=== PATIENT | female | born 1955 | race Caucasian/White ===

== ENCOUNTER 2024-03-08 17:45 | Emergency (ER) | payer MEDICARE, MEDICAID, SELFPAY ==
[2024-03-08] VITALS (18 sets, daily range): BP systolic 123–159; BP diastolic 71–89; PULSE 59–79; TEMP 36.7; O2SAT 21–99; BMI 22.1
--- NOTE | 2024-03-08 17:57 | XR_ITS ---
The [address] [address] Patient Name: OLGA SHEPPARD MRN: [id number] date: 1955 Sex: F Assigned Patient Location: ER Current Patient Location: ED.MAIN Accession/Order Number: [id number] Exam Date: 03/08/2024 18:10 Report Date: 03/08/2024 18:49 At the request of: JEREMÍAS CARRILLO Procedure: XR chest 1V EXAM: XR chest 1V HISTORY: pain COMPARISON: None. TECHNIQUE: AP portable upright chest x-ray. FINDINGS: No consolidation or edema. Prominent markings right lung base medially. Small scar lower left heart margin. Possible small granuloma left lung. Heart size normal for technique. No pleural effusion or pneumothorax. No pneumoperitoneum or bowel distention upper abdomen. XR/XR chest 1V IMPRESSION: No consolidation or edema or other acute process. Prominent markings right lung base medially probably vascular. Electronically authenticated by: CORDELL MACE Date: 03/08/2024 18:49
--- NOTE | 2024-03-08 17:57 | ECG_ITS ---
The [facility] Test Date: 2024-03-08 Pat Name: OLGA SHEPPARD Department: Room: - Gender: Female [employer] Manager: : 1955 Requested By: AIDA MAC Order Number: [id number] Reading MD: AIDA MAC Measurements Intervals [place] Rate: 73 P: 14 IN: 146 QRS: 74 QRSD: 80 T: 55 QT: 398 QTc: 424 Interpretive Statements 1100 Sinus rhythm 1470 with occasional supraventricular premature complexes 8102 Low QRS voltage in chest leads 9140 abnormal rhythm ECG No previous ECG available for comparison Electronically Signed On 03-09-2024 6:25:59 EDT by AIDA MAC
--- NOTE | 2024-03-08 18:08 | ED_ITS ---
HPI HPI - General Adult General Chief complaint: Chest Pain Stated complaint: General Weakness Time Seen by Provider: 03/08/24 17:56 Source: patient Mode of arrival: walk-in Limitations: no limitations History of Present Illness HPI narrative: The patient presenting to us with epigastric pain that started within the last hour, she mentioned that the pain was associated with nausea feeling as well as a headache in the posterior aspect of her head, she mentioned [place] she has been hydrating very well but it was hot weather. The patient denies any complaint earlier to this she is denying any cough fever chills or any other complaints and she also denying any alcohol intake Related Data Allergies Allergy/AdvReac Type Severity Reaction Status Date / Time No Known Drug Allergies Allergy Verified 03/08/24 17:52 Opioid HPI Opioid Management Most Recent Opioid Data: Last ED Pain Assessment 03/08/24 17:59 Review of Systems 2 ROS Status of ROS 10 or more systems reviewed and unremark able except as noted in history and below Exam Narrative Exam Narrative: Nurses notes and vital signs reviewed and patient is not hypoxic. General: Well-appearing and in no apparent distress. Skin: Warm, dry, no pallor noted. No rash. Head: Normocephalic, atraumatic. Neck: Supple, non-tender. Eye: Pupils are equal, round and EOMI. No scleral icterus. Ears, Nose, Mouth, and Throat: TM are clear, no nasal mucosal hypertrophy. Oral mucosa is moist, no posterior oropharynx erythema, uvula is mid-line Cardiovascular: Regular Rate and Rhythm without murmur, gallop or rub. Respiratory: No accessory muscle use or respiratory distress. Lungs are clear to auscultation, no wheezing, rales or rhonchi Chest Wall: no tenderness Back: No midline thoracic or lumbar vertebral tenderness. No CVA tenderness Musculoskeletal: normal ROM, no calf or popliteal tenderness, no lower extremity edema/swelling GI: Abdomen is soft, non-distended. Normal bowel sounds. No masses appreciated. Mild epigastric discomfort noted Neurological: A&O x4. No cranial nerve dysfunction observed. No truncal ataxia. Moves all extremities. Sensation intact. Psychiatric: Cooperative and interactive. Normal mood and affect. Constitutional Vital Signs, click to edit/add: Last Vital Signs Temp 98.0 F 05/19/24 17:47 Pulse 71 03/08/24 18:30 Resp 22 H 03/08/24 18:30 BP 134/76 03/08/24 18:15 Pulse Ox 99 03/08/24 18:30 O2 Del Method Room Air 03/08/24 17:47 Course Vital Signs Vital signs: Vital Signs Blood Pressure 152/89 H 03/08/24 17:46 Temperature 98.0 F 03/08/24 17:47 Pulse Rate 71 03/08/24 18:30 Respiratory Rate 22 H 03/08/24 18:30 Blood Pressure 134/76 03/08/24 18:15 Pulse Oximetry 99 03/08/24 18:30 Oxygen Delivery Method Room Air 03/08/24 17:47 Medical Decision Making MDM Narrative Medical decision making narrative: The patient EKG showing sinus rhythm with a heart rate of [address] elevation or depression The patient presentation is mostly secondary to heat exhaustion She was provided with 1 L fluid and Toradol Pepcid as well as Zofran The patient blood workup shows some hyponatremia which could be secondary to hydration Due to the patient risk factor she will have another troponin repeated after 2 hours patient care will be transferred to the next caregiver Dr Garcia Lab Data Labs: Lab Results 03/08/24 03/08/24 Range/Units 18:00 18:08 WBC 4.4 (4.0-11.0) 10^3/uL RBC 3.94 L (4.20-5.40) 10^6/uL Hgb 13.0 (12.0-16.0) g/dL Hct 38.2 (36.0-48.0) % MCV 97.0 (81.0-99.0) fL MCH 33.0 (26.7-34.0) pg MCHC 34.0 (29.9-35.2) g/dL RDW 12.1 (11.0-15.0) % Plt Count 167 (150-450) 10^3/uL MPV 8.8 L (9.5-13.5) fL Neut % (Auto) 68.1 (43.0-75.0) % Lymph % (Auto) 20.8 (20.5-60.0) % Page % (Auto) 10.2 (1.7-12.0) % Eos % (Auto) 0.2 L (0.9-7.0) % Baso % (Auto) 0.5 (0.2-2.0) % Neut # (Auto) 3.0 (1.4-6.5) 10^3/uL Lymph # (Auto) 0.9 L (1.2-3.8) 10^3/uL Page # (Auto) 0.5 (0.3-0.8) 10^3/uL Eos # (Auto) 0.0 (0.0-0.7) 10^3/uL Baso # (Auto) 0.0 (0.0-0.1) 10^3/uL Abs Immat Gran (auto) 0.01 (0.00-0.03) 10^3/uL Imm/Tot Granulo (auto) 0.2 (0.0-0.5) % PT 11.4 (9.0-11.6) sec INR 1.08 Sodium 135 L (136-145) mmol/L Potassium 3.5 (3.5-5.1) mmol/L Chloride 99 (98-107) mmol/L Carbon Dioxide 29.1 (21.0-32.0) mmol/L Anion Gap 10.4 BUN 16.0 (7.0-18.0) mg/dL Creatinine 0.69 (0.55-1.02) mg/dL Est GFR ( Amer) >60 (>=60) Est GFR (Non-Af Amer) >60 (>=60) BUN/Creatinine Ratio 23.2 Glucose 119 H (74-106) mg/dL Calcium 9.3 (8.5-10.1) mg/dL Total Bilirubin 0.7 (0.2-1.0) mg/dL AST 22 (15-37) U/L ALT 23 (14-59) U/L Alkaline Phosphatase 48 (46-116) U/L Troponin I High Sens 18.6 (4.0-51.3) pg/mL Total Protein 6.8 (6.4-8.2) g/dL Albumin 3.8 (3.4-5.0) g/dL Globulin 3.0 g/dL Albumin/Globulin Ratio 1.3 Ethanol Quant <3 mg/dL POC Glucose 119 H (74-106) mg/dL Discharge Plan Discharge Patient Disposition: Still a Patient
[2024-03-08 18:11] LABS: Glucometer 119 mg/dL (74-106)
[2024-03-08 18:15] LABS: Basophils Percent Auto 0.5 % (0.2-2.0); Eosinophils Percent Auto 0.2 % (0.9-7.0); Hematocrit 38.2 % (36.0-48.0); Immature Granulocytes Abs Auto 0.01 10^3/uL (0.00-0.03); Immature Granulocytes Pct Auto 0.2 % (0.0-0.5); Lymphocytes Absolute Auto 0.9 10^3/uL (1.2-3.8); Lymphocytes Percent Auto 20.8 % (20.5-60.0); Mean Platelet Volume 8.8 fL (9.5-13.5); Monocytes Absolute Auto 0.5 10^3/uL (0.3-0.8); Monocytes Percent Auto 10.2 % (1.7-12.0); Neutrophils Percent Auto 68.1 % (43.0-75.0); Platelet Count 167 10^3/uL (150-450); Red Blood Count 3.94 10^6/uL (4.20-5.40); Red Cell Distribution Width 12.1 % (11.0-15.0); White Blood Count 4.4 10^3/uL (4.0-11.0)
[2024-03-08] MEDS: KETOROLAC TROMETHAMINE 30 MG/ML VIAL 15 MG IVP (18:19)
[2024-03-08] MEDS: ONDANSETRON PF 4 MG/2 ML VIAL IV (18:19)
[2024-03-08] MEDS: 0.9 % SODIUM CHLORIDE 1,000 ML 1000 ML IV (18:19)
[2024-03-08] MEDS: FAMOTIDINE/PF 20 MG/2 ML VIAL IV (18:19)
[2024-03-08 18:24] LABS: Ethanol <3 mg/dL
[2024-03-08 18:29] LABS: INR 1.08; Prothrombin Time 11.4 sec (9.0-11.6)
[2024-03-08 18:32] LABS: Alanine Aminotransferase 23 U/L (14-59); Albumin Globulin Ratio 1.3; Albumin Level 3.8 g/dL (3.4-5.0); Alkaline Phosphatase 48 U/L (46-116); Anion Gap 10.4; Aspartate Amino Transferase 22 U/L (15-37); BUN Creatinine Ratio 23.2; Bilirubin Total 0.7 mg/dL (0.2-1.0); Calcium 9.3 mg/dL (8.5-10.1); Carbon Dioxide 29.1 mmol/L (21.0-32.0); Chloride 99 mmol/L (98-107); Estimated GFR (African America >60 (>=60); Estimated GFR (Non-African Ame >60 (>=60); Glucose 119 mg/dL (74-106); Potassium 3.5 mmol/L (3.5-5.1); Sodium 135 mmol/L (136-145); Total Protein 6.8 g/dL (6.4-8.2); Troponin I High Sensitivity 18.6 pg/mL (4.0-51.3)
[2024-03-08] MEDS: 0.9 % SODIUM CHLORIDE 500 ML IV (18:39)
[2024-03-08 20:10] LABS: Amphetamine Screen Urine NEGATIVE (NEGATIVE); Barbiturates Screen Urine NEGATIVE (NEGATIVE); Benzodiazepines Screen Urine NEGATIVE (NEGATIVE); Buprenorphine Screen Urine NEGATIVE (NEGATIVE); Cannabinoid Screen Urine NEGATIVE (NEGATIVE); Cocaine Screen Urine NEGATIVE (NEGATIVE); Methadone Screen Urine NEGATIVE (NEGATIVE); Methamphetamines Screen Urine NEGATIVE (NEGATIVE); Opiate Screen Urine NEGATIVE (NEGATIVE); Oxycodone Screen Urine NEGATIVE (NEGATIVE); Phencyclidine Screen Urine NEGATIVE (NEGATIVE); Tricyclic Antidepressant Urine NEGATIVE (NEGATIVE)
[2024-03-08 20:13] LABS: Troponin I High Sensitivity 27.5 pg/mL (4.0-51.3)
== END 2024-03-08 20:39 | disposition home or self-care (01) ==
PROVIDERS: Emergency Medicine; Emergency Provider Internal Medicine
DX: E86.0 Dehydration (principal); T67.5XXA Heat exhaustion, unspecified, initial encounter; X30.XXXA Exposure to excessive natural heat, initial encounter
CPT/HCPCS: 36415; 71045; 80053; 80307; 80320; 82948; 84484; 85025; 85610; 93005; 96374; 96375; 99285